=== PATIENT | male | born 1985 | race Hispanic/Latino ===

== ENCOUNTER 2020-07-05 14:06 | Emergency (ER) | payer SELFPAY ==
--- NOTE | ~2020-07-05 | CT_ITS ---
EXAMINATION: CT abdomen pelvis w con DATE: 07/05/2020 17:56 INDICATION: Abdominal pain and diarrhea for 2 days TECHNIQUE: Computed tomography (CT) of the abdomen and pelvis was performed with 100 cc Omnipaque 350 intravenous contrast. Automated exposure control and iterative reconstruction technique were employe d. Exam dose: 1357.68 mGy-cm total exam DLP. COMPARISON: None. FINDINGS: Occasional calcified pulmonary granulomas. There is mild discoid atelectasis or scarring at the lingula. The included lower lung zones are clear of infiltrate or consolidation. Heart size is within normal range. No pericardial or pleural effusion. Diffuse hepatic steatosis. No hepatic, splenic, pancreatic, and adrenal or renal space-occupying mass lesion is evident. The gallbladder is present. No bile duct or pancreatic duct dilatation. No urinary tract calculus or hydroureteronephrosis. Normal caliber of the abdominal aorta. No intraperitoneal or retroperitoneal or pelvic mass lesion or adenopathy or ascites. The urinary bladder and prostate gland are unremarkable. Small fat-containing right inguinal hernia. Small sliding hiatal hernia. Normal appendix. No bowel obstruction, bowel wall thickening, pneumatosi s or intraperitoneal free air. Included skeletal structures are unremarkable. IMPRESSION: Small sliding hiatal hernia Small fat-containing right inguinal hernia Normal appendix No bowel obstruction Hepatic steatosis Reviewed, dictated and finalized at [facility]. Reviewed, dictated and finalized at [facility].
[2020-07-05 14:32] VITALS: BP 141/66; PULSE 83; RESP 20; TEMP 36.1; O2SAT 98
[2020-07-05 14:42] LABS: Basophils Percent Auto 0.2 % (0.2-1.2); Eosinophils Absolute Auto 0.1 K/mm3 (0-0.3); Eosinophils Percent Auto 0.5 % (0-4.4); Hematocrit 40.7 % (42.0-52.0); Hemoglobin 14.4 g/dL (14.0-18.0); Immature Granulocyte Absolute 0.03 K/mm3 (0.00-0.031); Immature Granulocyte Percent A 0.2 % (0-0.5); Lymphocytes Absolute Auto 2.65 K/mm3 (0.9-3.2); Lymphocytes Percent Auto 21.7 % (18.3-44.2); Mean Corpuscular HGB Conc 35.4 g/dl (32-36); Mean Corpuscular Hemoglobin 31.5 pg (26-34); Mean Corpuscular Volume 89.1 fl (80-100); Mean Platelet Volume 8.6 fl (7.4-10.4); Monocytes Absolute Auto 1.2 K/mm3 (0.1-0.6); Monocytes Percent Auto 9.9 % (2.6-8.5); Neutrophils Absolute Auto 8.3 K/mm3 (1.3-6.7); Neutrophils Percent Auto 67.5 % (45.5-73.1); Platelet Count Result 264 k/mm3 (150-375); Red Blood Count 4.57 M/mm3 (4.6-6.20); Red Cell Distribution Width 11.9 % (11.5-14.5); White Blood Count 12.2 K/mm3 (4.5-10.0)
[2020-07-05 14:51] LABS: Add Urine Microscopic? NO; Appearance Urine Clear (Clear); Bilirubin Urine Negative (Negative); Blood Urine Negative (Negative); Color Urine Yellow (Yellow); Glucose Urine UA Negative (Negative); Ketones Urine Negative (Negative); Leukocyte Esterase Ur Negative LEU/UL (Negative); Nitrate Urine Negative (Negative); Protein Urine Negative (Negative); Urobilinogen Urine Negative mg/dL (<2.0)
[2020-07-05 14:53] LABS: Alanine Aminotransferase 29 U/L (4-50); Albumin Level 4.2 g/dL (3.5-5.1); Alkaline Phosphatase 70 U/L (38-126); Anion Gap 9 mmol/L (8-16); Aspartate Amino Transferase 28 U/L (17-59); Bilirubin,Total 0.3 mg/dL (0.2-1.3); Blood Urea Nitrogen 10 mg/dL (9-20); Calcium 8.8 mg/dL (8.4-10.2); Carbon Dioxide 25 mmol/L (22-30); Chloride 104 mmol/L (98-107); Estimated Glomerular Filt Rate > 60; Glucose 110 mg/dL (75-110); Lipase 52 U/L (23-300); Potassium 3.8 mmol/L (3.4-5.0); Sodium 138 mmol/L (137-145)
[2020-07-05 14:57] LABS: Mucus Urine Rare /lpf; RBC Urine 0-2 /hpf (0-2); WBC Urine 0-3 /hpf
[2020-07-05 16:46] VITALS: BP 143/90; PULSE 102; RESP 18; O2SAT 99
--- NOTE | 2020-07-05 18:26 | ED.ABDPAIN ---
HPI - Abdominal Pain General Chief Complaint: Abdominal Pain Stated Complaint: abd pain Time Seen by Provider: 07/05/20 16:16 Source: RN notes reviewed History of Present Illness HPI narrative: Patient presents to emergency department from home for abdominal pain. Patient states symptoms began 3 days ago. States has been having intermittent abdominal pain as well as diarrhea. He states he has had a subjective fever at home the past 2 days but none today he denies any current abdominal pain states the pain is intermittent the pain is located in the mid abdomen described as cramping states he has been taking penicillin he had had leftover at home for the past 2 days he denies any chest pain shortness of breath cough, rhinorrhea's, sore throat or any other symptoms Related Data Allergies Allergy/AdvReac Type Severity Reaction Status Date / Time No Known Allergies Allergy Verified 07/05/20 16:52 Review of Systems Review of Systems: Narrative: Gen.: Reports subjective fever Eyes: Denies eye pain or visual change ENT: Denies congestion Respiratory: Denies shortness of breath or cough CV: Denies chest pain or palpitations GI: See HPI denies burning, urgency, frequency or hematuria Musculoskeletal: Denies back pain or muscle pain Neuro: Denies numbness, tingling, weakness or focal weakness Skin: Denies rash Except as documented, all other systems reviewed and negative [facility] Past Medical History Medical History (Updated 07/05/20 @ 18:28 by Cb Samuel DO) Patient denies significant medical history Social History Social History (Updated 07/05/20 @ 18:27 by Cb Samuel DO) Smoking status: Current every day smoker Exam Narrative: Exam Narrative: APPEARANCE: No acute distress, nontoxic, resting in bed EYES: EOMI HEENT: Normocephalic, atraumatic, OMM RESPIRATORY: No respiratory distress Clear to auscultation bilaterally with no rhonchi wheezing or rales. CARDIOVASCULAR: Regular rate and rhythm without murmurs rubs or gallops. ABDOMINAL: Soft, nontender, nondistended, no rebound or guarding MUSCULOSKELETAl: Moves all extremities. No clubbing, cyanosis or edema. NEURO: Awake and alert. Following commands, speech normal, no focal deficits SKIN:: Warm, dry. No rashes lesions or abrasions PSYCHIATRIC: Normal affect/mood, Course Course Emergency Course: Discussed with patient results of workup and diagnosis. Discussed need for follow-up with primary care, proper use of medication, and reasons to return to the emergency department. Patient understands and agrees to current treatment plan Vital Signs Vital signs: Vital Signs Temperature 97.0 F L 07/05/20 14:32 Pulse Rate 83 07/05/20 14:32 Respiratory Rate 20 07/05/20 14:32 Blood Pressure 141/66 H 07/05/20 14:32 Pulse Oximetry 98 07/05/20 14:32 Temperature 97.0 F L 07/05/20 14:32 Pulse Rate 102 H 07/05/20 16:46 Respiratory Rate 18 07/05/20 16:46 Blood Pressure 143/90 H 07/05/20 16:46 Pulse Oximetry 99 07/05/20 16:46 MDM - Abdominal Pain MDM Narrative Medical decision making narrative: Patient's abdomen is soft without significant pain or signs of surgical abdomen on serial exams. Lab and x-ray evaluations are reviewed and patient is felt to be a reasonable candidate for outpatient management. Patient was instructed as to limitations of x-ray and laboratory evaluation and encouraged to return to ED or primary physician for repeat exam in 12 hours if continued or worsening pain Lab Data Result diagrams: 07/05/20 14:35 07/05/20 14:35 Labs: Lab Results 07/05/20 07/05/20 07/05/20 Range/Units 14:35 14:35 14:43 WBC 12.2 H (4.5-10.0) K/mm3 RBC 4.57 L (4.6-6.20) M/mm3 Hgb 14.4 (14.0-18.0) g/dL Hct 40.7 L (42.0-52.0) % MCV 89.1 (80-100) fl MCH 31.5 (26-34) pg MCHC 35.4 (32-36) g/dl RDW 11.9 (11.5-14.5) % Plt Count 264 (150-375) k/mm3 MPV 8.6 (7.4-10
[2020-07-05] MEDS: DICYCLOMINE HCL 10 MG CAPSULE 20 MG PO (18:43)
[2020-07-05] MEDS: SODIUM CHLORIDE 0.9% IV 1,000 ML 999 ML IV CONT (18:43)
[2020-07-05 19:28] VITALS: BP 137/78; PULSE 94; RESP 18; O2SAT 99
== END 2020-07-05 19:30 | disposition home or self-care (01) ==
PROVIDERS: Emergency Provider Emergency Medicine
DX: R19.7 Diarrhea, unspecified (principal); R10.9 Unspecified abdominal pain
CPT/HCPCS: 36415; 74177; 80053; 81003; 83690; 85025; 96360; 99284; A9270; J7030; Q9967